=== PATIENT | female | born 1980 | race Caucasian/White ===

== ENCOUNTER 2017-04-14 15:41 | Outpatient (CLI) | payer OTHER ==
[2017-04-14] MEDS ORDERED: GADOBUTROL 7.5 MMOL/7.5 ML VIAL IV ONE (16:36)
--- NOTE | 2017-04-15 04:28 | MRI Report ---
EXAM: MRI BRAIN WITHOUT AND WITH CONTRAST EXAM DATE: 04/14/2017 04:49 PM. CLINICAL HISTORY: Lower extremity numbness, decreased memory, family history of multiple sclerosis. R emote history of head trauma. COMPARISON: None. TECHNIQUE: Multiplanar, multisequence T1-weighted and fluid-sensitive MR sequences of the brain were performed. Sequences optimized for routine evaluation. Other: None. Without and with IV Contrast: 6.5 mL of Gadavist. FINDINGS: Brain Volume: Normal for age. Parenchyma/Dura: No masses, infarcts, or hemorrhage. No white matter lesions identified. The hippocam pi are symmetric in size and normal in appearance given nondedicated technique. 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 Sinuses: Trace mucosal thickening is noted in the left maxillary sinus. The orbits and mastoid sinuse s are unremarkable. Bones: Normal. Other: There is normal contrast opacification in the intracranial arteries and dural venous sinuses. IMPRESSION: 1. No acute infarct, intracranial mass lesion, or hemorrhage. 2. No obvious evidence of demyelination or hippocampal volume loss. [facility] Referring Provider Line: [phone] SITE ID: [id number]
== END 2017-04-14 15:42 | disposition home or self-care (01) ==
LOC: DI 15:41
PROVIDERS: ATTEND Family Medicine
DX: G62.9 Polyneuropathy, unspecified (principal)
CPT/HCPCS: 70553; A9585

== ENCOUNTER 2017-07-15 07:43 | Day surgery (SDC) | payer OTHER ==
[2017-07-15] MEDS ORDERED: LACTATED RINGERS 1,000 ML IV ONE (08:04)
[2017-07-15 08:13] LABS: HCG UR QUAL NEGATIVE
[2017-07-15] MEDS ORDERED: fentaNYL 100 MCG/2 ML VIAL IVP ONE (09:02)
[2017-07-15] MEDS ORDERED: MIDAZOLAM 2 MG/2 ML VIAL IVP ONE (09:02)
[2017-07-15 10:22] VITALS: BP 124/74
== END 2017-07-15 07:44 | disposition home or self-care (01) ==
LOC: SDS 07:43
PROVIDERS: ATTEND Surgery
PROC: 0DJD8ZZ Inspection of Lower Intestinal Tract, Via Natural or Artificial Opening Endoscopic (ICD-10-PCS; principal; 2017-07-15 09:00)
DX: Z12.11 Encounter for screening for malignant neoplasm of colon (principal); Z80.0 Family history of malignant neoplasm of digestive organs
CPT/HCPCS: 45378; 81025; J7120

== ENCOUNTER 2017-08-11 09:12 | Outpatient (CLI) | payer OTHER ==
[2017-08-11 13:00] LABS: ALBUMIN/GLOBULIN RATIO 1.4 (1.0-2.2); BILIRUBIN,TOTAL 0.8 mg/dL (0.2-1.0); BUN - BLOOD UREA NITROGEN 13 mg/dL (6-20); CALCIUM 9.4 mg/dL (8.5-10.3); CARBON DIOXIDE - CO2 28 mmol/L (21-32); CHLORIDE 104 mmol/L (101-111); CREATININE 0.8 mg/dL (0.4-1.0); GFR - MDRD 82 (>89); GLUCOSE 64 mg/dL (70-100); POTASSIUM 4.1 mmol/L (3.5-5.0); SODIUM 138 mmol/L (135-145); TOTAL PROTEIN 7.3 g/dL (6.7-8.2)
[2017-08-11 13:03] LABS: BASOPHILS # (AUTO) 0.1 10^3/uL (0.0-0.1); BASOPHILS % (AUTO) 0.8 %; EOSINOPHILS # (AUTO) 0.2 10^3/uL (0.0-0.7); EOSINOPHILS % (AUTO) 2.7 %; HCT - HEMATOCRIT 38.9 % (37.0-47.0); HGB - HEMOGLOBIN 13.3 g/dL (12.0-16.0); LYMPHOCYTES # (AUTO) 1.9 10^3/uL (1.5-3.5); LYMPHOCYTES % (AUTO) 25.2 %; MEAN CORPUSCULAR HEMOGLOBIN 32.5 pg (27.0-31.0); MEAN CORPUSCULAR HGB CONC 34.3 g/dL (32.0-36.0); MEAN CORPUSCULAR VOLUME 94.8 fL (81.0-99.0); MEAN PLATELET VOLUME 9.1 fL (7.9-10.8); MONOCYTES # (AUTO) 0.5 10^3/uL (0.0-1.0); NEUTROPHILS # (AUTO) 4.8 10^3/uL (1.5-6.6); NEUTROPHILS % (AUTO) 64.3 %; RED CELL DISTRIBUTION WIDTH 12.4 % (12.0-15.0); UNCORRECTED WHITE BLOOD COUNT 7.4 x10^3/uL; WHITE BLOOD COUNT 7.4 x10^3/uL (4.8-10.8)
[2017-08-11 13:18] LABS: THYROID STIMULATING HORMONE 0.32 uIU/mL (0.34-5.60)
[2017-08-11 13:24] LABS: HEMOGLOBIN A1C 0.46 g/dL
== END 2017-08-11 09:13 | disposition home or self-care (01) ==
LOC: LAB.WCP 09:12
PROVIDERS: ATTEND Family Medicine
DX: Z00.00 Encounter for general adult medical examination without abnormal findings (principal); Z13.89 Encounter for screening for other disorder
CPT/HCPCS: 36415; 80050; 83036; 84439; 86317; 86704; 87340

== ENCOUNTER 2017-12-01 08:50 | Outpatient (CLI) | payer OTHER ==
[2017-12-01 14:58] LABS: H. PYLORIS ANTIGEN STL NEGATIVE (Negative)
== END 2017-12-01 08:51 | disposition home or self-care (01) ==
LOC: LAB.WCP 08:50
PROVIDERS: ATTEND Family Medicine
DX: R19.7 Diarrhea, unspecified (principal)
CPT/HCPCS: 81599; 83630; 87045; 87046; 87177; 87209; 87338; 87493